=== PATIENT | male | born 1935 | race Caucasian/White ===

== ENCOUNTER 2020-11-03 11:45 | Outpatient (CLI) | payer MEDICARE, OTHER | END 2020-11-03 23:59 | disposition home or self-care (01) | LOC: MSC 11:45 | PROVIDERS: ATTEND Internal Medicine | DX: U07.1 COVID-19 (principal); M25.472 Effusion, left ankle; I10 Essential (primary) hypertension; N40.0 Benign prostatic hyperplasia without lower urinary tract symptoms; E78.5 Hyperlipidemia, unspecified; M19.90 Unspecified osteoarthritis, unspecified site; Z87.19 Personal history of other diseases of the digestive system; H91.90 Unspecified hearing loss, unspecified ear; D89.2 Hypergammaglobulinemia, unspecified; R73.02 Impaired glucose tolerance (oral); M72.0 Palmar fascial fibromatosis [Dupuytren]; M16.9 Osteoarthritis of hip, unspecified ==

== ENCOUNTER 2021-10-24 16:00 | Outpatient (CLI) | payer MEDICARE, OTHER | END 2021-10-24 23:59 | disposition home or self-care (01) | LOC: MSC 16:00 | PROVIDERS: ATTEND Internal Medicine | DX: I10 Essential (primary) hypertension (principal); R51.9 Headache, unspecified; Z86.16 Personal history of COVID-19; M25.473 Effusion, unspecified ankle; N40.0 Benign prostatic hyperplasia without lower urinary tract symptoms; E78.5 Hyperlipidemia, unspecified; M19.90 Unspecified osteoarthritis, unspecified site; Z87.19 Personal history of other diseases of the digestive system; H91.90 Unspecified hearing loss, unspecified ear; D89.2 Hypergammaglobulinemia, unspecified; E74.39 Other disorders of intestinal carbohydrate absorption; M72.0 Palmar fascial fibromatosis [Dupuytren]; M16.10 Unilateral primary osteoarthritis, unspecified hip ==

== ENCOUNTER 2021-10-25 09:21 | Outpatient (CLI) | payer MEDICARE, OTHER | END 2021-10-25 23:59 | disposition home or self-care (01) | LOC: MSC 09:21 | PROVIDERS: ATTEND Internal Medicine | DX: I10 Essential (primary) hypertension (principal); R51.9 Headache, unspecified; R05.9 Cough, unspecified; Z86.16 Personal history of COVID-19; M25.473 Effusion, unspecified ankle; N40.0 Benign prostatic hyperplasia without lower urinary tract symptoms; E78.5 Hyperlipidemia, unspecified; M19.90 Unspecified osteoarthritis, unspecified site; Z87.19 Personal history of other diseases of the digestive system; H91.90 Unspecified hearing loss, unspecified ear; D89.2 Hypergammaglobulinemia, unspecified; E74.39 Other disorders of intestinal carbohydrate absorption; M72.0 Palmar fascial fibromatosis [Dupuytren]; M16.9 Osteoarthritis of hip, unspecified ==

== ENCOUNTER 2021-11-01 11:45 | Outpatient (CLI) | payer MEDICARE, OTHER | END 2021-11-01 23:59 | disposition home or self-care (01) | LOC: MSC 11:45 | PROVIDERS: ATTEND Internal Medicine | DX: I10 Essential (primary) hypertension (principal); Z86.16 Personal history of COVID-19; M25.473 Effusion, unspecified ankle; N40.0 Benign prostatic hyperplasia without lower urinary tract symptoms; E78.5 Hyperlipidemia, unspecified; M19.90 Unspecified osteoarthritis, unspecified site; Z87.19 Personal history of other diseases of the digestive system; H91.90 Unspecified hearing loss, unspecified ear; D89.2 Hypergammaglobulinemia, unspecified; E74.39 Other disorders of intestinal carbohydrate absorption; M72.0 Palmar fascial fibromatosis [Dupuytren]; M16.10 Unilateral primary osteoarthritis, unspecified hip ==

== ENCOUNTER 2021-12-06 14:30 | Outpatient (CLI) | payer MEDICARE, OTHER | END 2021-12-06 23:59 | disposition home or self-care (01) | LOC: MSC 14:30 | PROVIDERS: ATTEND Internal Medicine | DX: R51.9 Headache, unspecified (principal); R42 Dizziness and giddiness; R06.00 Dyspnea, unspecified; I10 Essential (primary) hypertension; Z86.16 Personal history of COVID-19; M25.473 Effusion, unspecified ankle; N40.0 Benign prostatic hyperplasia without lower urinary tract symptoms; E78.5 Hyperlipidemia, unspecified; M19.90 Unspecified osteoarthritis, unspecified site; Z87.19 Personal history of other diseases of the digestive system; H91.90 Unspecified hearing loss, unspecified ear; D89.2 Hypergammaglobulinemia, unspecified; E74.39 Other disorders of intestinal carbohydrate absorption; M72.0 Palmar fascial fibromatosis [Dupuytren]; M16.10 Unilateral primary osteoarthritis, unspecified hip ==

== ENCOUNTER 2021-12-15 10:59 | Outpatient (CLI) | payer MEDICARE, OTHER | END 2021-12-15 23:59 | disposition home or self-care (01) | LOC: MSC 10:59 | PROVIDERS: ATTEND Internal Medicine | DX: R06.00 Dyspnea, unspecified (principal); I25.2 Old myocardial infarction; Z86.73 Personal history of transient ischemic attack (TIA), and cerebral infarction without residual deficits; I10 Essential (primary) hypertension; Z87.19 Personal history of other diseases of the digestive system; Z86.16 Personal history of COVID-19; M25.473 Effusion, unspecified ankle; N40.0 Benign prostatic hyperplasia without lower urinary tract symptoms; E78.5 Hyperlipidemia, unspecified; M19.90 Unspecified osteoarthritis, unspecified site; H91.90 Unspecified hearing loss, unspecified ear; D89.2 Hypergammaglobulinemia, unspecified; E74.39 Other disorders of intestinal carbohydrate absorption; M72.0 Palmar fascial fibromatosis [Dupuytren] ==

== ENCOUNTER 2022-01-18 15:30 | Outpatient (CLI) | payer MEDICARE, OTHER | END 2022-01-18 23:59 | disposition home or self-care (01) | LOC: MSC 15:30 | PROVIDERS: ATTEND Internal Medicine | DX: N41.9 Inflammatory disease of prostate, unspecified (principal); B96.5 Pseudomonas (aeruginosa) (mallei) (pseudomallei) as the cause of diseases classified elsewhere; N40.0 Benign prostatic hyperplasia without lower urinary tract symptoms; R06.00 Dyspnea, unspecified; I10 Essential (primary) hypertension; I25.2 Old myocardial infarction; Z86.73 Personal history of transient ischemic attack (TIA), and cerebral infarction without residual deficits; Z87.19 Personal history of other diseases of the digestive system; Z86.16 Personal history of COVID-19; M25.473 Effusion, unspecified ankle; E78.5 Hyperlipidemia, unspecified; M19.90 Unspecified osteoarthritis, unspecified site; H91.90 Unspecified hearing loss, unspecified ear; D89.2 Hypergammaglobulinemia, unspecified; E74.39 Other disorders of intestinal carbohydrate absorption; M72.0 Palmar fascial fibromatosis [Dupuytren]; M16.10 Unilateral primary osteoarthritis, unspecified hip; Z79.899 Other long term (current) drug therapy ==

== ENCOUNTER → 2022-03-14 | Outpatient (CLI) | payer MEDICARE, OTHER | END | disposition home or self-care (01) | LOC: MSC 12:31 | PROVIDERS: ATTEND Internal Medicine | DX: I48.0 Paroxysmal atrial fibrillation (principal); Z86.73 Personal history of transient ischemic attack (TIA), and cerebral infarction without residual deficits; N40.0 Benign prostatic hyperplasia without lower urinary tract symptoms; R06.00 Dyspnea, unspecified; I10 Essential (primary) hypertension; Z87.19 Personal history of other diseases of the digestive system; Z86.16 Personal history of COVID-19; M25.473 Effusion, unspecified ankle; E78.5 Hyperlipidemia, unspecified; M19.90 Unspecified osteoarthritis, unspecified site; H91.90 Unspecified hearing loss, unspecified ear; D89.2 Hypergammaglobulinemia, unspecified; E74.39 Other disorders of intestinal carbohydrate absorption; M72.0 Palmar fascial fibromatosis [Dupuytren]; M16.10 Unilateral primary osteoarthritis, unspecified hip ==

== ENCOUNTER 2022-03-23 11:00 | Outpatient (CLI) | payer MEDICARE, OTHER | END 2022-03-23 23:59 | disposition home or self-care (01) | LOC: MSC 11:00 | PROVIDERS: ATTEND Internal Medicine | DX: I48.0 Paroxysmal atrial fibrillation (principal); Z79.01 Long term (current) use of anticoagulants; R68.84 Jaw pain; Z86.73 Personal history of transient ischemic attack (TIA), and cerebral infarction without residual deficits; N40.0 Benign prostatic hyperplasia without lower urinary tract symptoms; R06.00 Dyspnea, unspecified; I10 Essential (primary) hypertension; Z87.19 Personal history of other diseases of the digestive system; Z86.16 Personal history of COVID-19; M25.473 Effusion, unspecified ankle; E78.5 Hyperlipidemia, unspecified; M19.90 Unspecified osteoarthritis, unspecified site; H91.90 Unspecified hearing loss, unspecified ear; D89.2 Hypergammaglobulinemia, unspecified; E74.39 Other disorders of intestinal carbohydrate absorption; M72.0 Palmar fascial fibromatosis [Dupuytren]; M16.10 Unilateral primary osteoarthritis, unspecified hip; Z79.899 Other long term (current) drug therapy ==

== ENCOUNTER 2022-04-12 14:30 | Outpatient (CLI) | payer MEDICARE, OTHER | END 2022-04-12 23:59 | disposition home or self-care (01) | LOC: MSC 14:30 | PROVIDERS: ATTEND Internal Medicine | DX: I48.0 Paroxysmal atrial fibrillation (principal); Z79.01 Long term (current) use of anticoagulants; R68.84 Jaw pain; N40.0 Benign prostatic hyperplasia without lower urinary tract symptoms; R06.00 Dyspnea, unspecified; I10 Essential (primary) hypertension; Z87.19 Personal history of other diseases of the digestive system; M25.473 Effusion, unspecified ankle; E78.5 Hyperlipidemia, unspecified; M19.90 Unspecified osteoarthritis, unspecified site; H91.90 Unspecified hearing loss, unspecified ear; D89.2 Hypergammaglobulinemia, unspecified; E74.39 Other disorders of intestinal carbohydrate absorption; M72.0 Palmar fascial fibromatosis [Dupuytren]; M16.10 Unilateral primary osteoarthritis, unspecified hip; Z86.16 Personal history of COVID-19; Z86.73 Personal history of transient ischemic attack (TIA), and cerebral infarction without residual deficits; Z79.899 Other long term (current) drug therapy ==

== ENCOUNTER → 2022-04-14 | Outpatient (CLI) | payer MEDICARE, OTHER | END | disposition home or self-care (01) | LOC: MSC 14:30 | PROVIDERS: ATTEND Internal Medicine | DX: Z51.89 Encounter for other specified aftercare (principal); I48.0 Paroxysmal atrial fibrillation; Z79.01 Long term (current) use of anticoagulants; R68.84 Jaw pain; N40.0 Benign prostatic hyperplasia without lower urinary tract symptoms; R06.00 Dyspnea, unspecified; I10 Essential (primary) hypertension; Z87.19 Personal history of other diseases of the digestive system; M25.473 Effusion, unspecified ankle; E78.5 Hyperlipidemia, unspecified; M19.90 Unspecified osteoarthritis, unspecified site; H91.90 Unspecified hearing loss, unspecified ear; D89.2 Hypergammaglobulinemia, unspecified; E74.39 Other disorders of intestinal carbohydrate absorption; M72.0 Palmar fascial fibromatosis [Dupuytren]; M16.10 Unilateral primary osteoarthritis, unspecified hip; Z86.16 Personal history of COVID-19; Z86.73 Personal history of transient ischemic attack (TIA), and cerebral infarction without residual deficits; Z79.899 Other long term (current) drug therapy ==

== ENCOUNTER 2022-04-19 13:30 | Outpatient (CLI) | payer MEDICARE, OTHER | END 2022-04-19 23:59 | disposition home or self-care (01) | LOC: MSC 13:30 | PROVIDERS: ATTEND Internal Medicine | DX: Z51.89 Encounter for other specified aftercare (principal); I48.0 Paroxysmal atrial fibrillation; Z79.01 Long term (current) use of anticoagulants; R68.84 Jaw pain; N40.0 Benign prostatic hyperplasia without lower urinary tract symptoms; R06.00 Dyspnea, unspecified; I10 Essential (primary) hypertension; Z87.19 Personal history of other diseases of the digestive system; M25.473 Effusion, unspecified ankle; E78.5 Hyperlipidemia, unspecified; M19.90 Unspecified osteoarthritis, unspecified site; H91.90 Unspecified hearing loss, unspecified ear; D89.2 Hypergammaglobulinemia, unspecified; E74.39 Other disorders of intestinal carbohydrate absorption; M72.0 Palmar fascial fibromatosis [Dupuytren]; M16.10 Unilateral primary osteoarthritis, unspecified hip; Z86.16 Personal history of COVID-19; Z86.73 Personal history of transient ischemic attack (TIA), and cerebral infarction without residual deficits ==

== ENCOUNTER → 2022-05-12 | Outpatient (CLI) | payer MEDICARE, OTHER | END | disposition home or self-care (01) | LOC: MSC 14:12 | PROVIDERS: ATTEND Internal Medicine | DX: R53.83 Other fatigue (principal); R06.00 Dyspnea, unspecified; I48.0 Paroxysmal atrial fibrillation; Z79.01 Long term (current) use of anticoagulants; R68.84 Jaw pain; N40.0 Benign prostatic hyperplasia without lower urinary tract symptoms; I10 Essential (primary) hypertension; M25.473 Effusion, unspecified ankle; E78.5 Hyperlipidemia, unspecified; M17.10 Unilateral primary osteoarthritis, unspecified knee; M16.10 Unilateral primary osteoarthritis, unspecified hip; D89.2 Hypergammaglobulinemia, unspecified; E74.39 Other disorders of intestinal carbohydrate absorption; M72.0 Palmar fascial fibromatosis [Dupuytren]; Z86.73 Personal history of transient ischemic attack (TIA), and cerebral infarction without residual deficits; Z86.16 Personal history of COVID-19; Z87.19 Personal history of other diseases of the digestive system ==

== ENCOUNTER 2022-05-30 08:47 | Outpatient (CLI) | payer MEDICARE, OTHER ==
[2022-05-30 09:15] LABS: BASOPHILS # (AUTO) 0.1 K/uL (0.0-0.2); BASOPHILS % (AUTO) 0.9 % (0.0-2.0); EOSINOPHILS % (AUTO) 1.4 % (0.0-6.0); HEMATOCRIT 41 % (39-51); HEMOGLOBIN 13.8 g/dL (13.5-17.5); LYMPHOCYTES # (AUTO) 2.3 K/uL (0.8-4.8); LYMPHOCYTES % (AUTO) 32.9 % (20.0-44.0); MEAN CORPUSCULAR HGB CONC 34 g/dl (31.0-36.0); MEAN CORPUSCULAR VOLUME 97 fL (80-96); MONOCYTES # (AUTO) 0.5 K/uL (0.1-1.30); MONOCYTES % (AUTO) 6.8 % (2.0-12.0); NEUTROPHILS # (AUTO) 4.1 K/uL (1.8-8.9); PLATELET COUNT (AUTO) 274 K/uL (150-450); RED BLOOD CELL COUNT(AUTO) 4.25 MIL/uL (4.5-6.0)
[2022-05-30 09:17] LABS: BILIRUBIN,URINE NEGATIVE (NEGATIVE); COLOR,URINE YELLOW (YELLOW); LEUKOCYTE ESTERASE ,URINE NEGATIVE (NEGATIVE); NITRITE, URINE NEGATIVE (NEGATIVE); PROTEIN,URINE NEGATIVE (NEGATIVE); UGLUCOSE NEGATIVE (NEGATIVE); UROBILINOGEN,URINE 0.2 EU/dL (0.2)
[2022-05-30 09:40] LABS: ALBUMIN 3.5 g/dL (3.4-5.0); BILIRUBIN,TOTAL 0.9 mg/dL (0.2-1.0); CREATININE 0.9 mg/dL (0.6-1.3); POTASSIUM 3.9 mmol/L (3.5-5.1); TOTAL PROTEIN, SERUM 7.5 g/dL (6.4-8.2)
== END 2022-05-30 23:59 | disposition home or self-care (01) ==
LOC: LAB 08:47
PROVIDERS: ATTEND Internal Medicine
DX: Z01.811 Encounter for preprocedural respiratory examination (principal); Z90.49 Acquired absence of other specified parts of digestive tract
CPT/HCPCS: 36415; 71046; 80053-TC; 85025-TC; 85730-TC

== ENCOUNTER 2022-06-08 10:07 | Outpatient (CLI) | payer MEDICARE, OTHER | END 2022-06-08 23:59 | disposition home or self-care (01) | LOC: MSC 10:07 | PROVIDERS: ATTEND Internal Medicine | DX: Z01.818 Encounter for other preprocedural examination (principal); I49.5 Sick sinus syndrome; R06.00 Dyspnea, unspecified; I48.0 Paroxysmal atrial fibrillation; Z79.01 Long term (current) use of anticoagulants; R68.84 Jaw pain; N40.0 Benign prostatic hyperplasia without lower urinary tract symptoms; I10 Essential (primary) hypertension; M25.473 Effusion, unspecified ankle; E78.5 Hyperlipidemia, unspecified; M17.10 Unilateral primary osteoarthritis, unspecified knee; M16.10 Unilateral primary osteoarthritis, unspecified hip; H91.90 Unspecified hearing loss, unspecified ear; D89.2 Hypergammaglobulinemia, unspecified; E74.39 Other disorders of intestinal carbohydrate absorption; M72.0 Palmar fascial fibromatosis [Dupuytren]; Z86.73 Personal history of transient ischemic attack (TIA), and cerebral infarction without residual deficits; Z86.16 Personal history of COVID-19; Z87.19 Personal history of other diseases of the digestive system ==

== ENCOUNTER 2022-07-18 10:55 | Outpatient (CLI) | payer MEDICARE, OTHER | END 2022-07-18 23:59 | disposition home or self-care (01) | LOC: MSC 10:55 | PROVIDERS: ATTEND Internal Medicine | DX: R53.83 Other fatigue (principal); I10 Essential (primary) hypertension; Z95.0 Presence of cardiac pacemaker; I48.0 Paroxysmal atrial fibrillation; Z79.01 Long term (current) use of anticoagulants; Z86.73 Personal history of transient ischemic attack (TIA), and cerebral infarction without residual deficits; R06.00 Dyspnea, unspecified; R68.84 Jaw pain; N40.0 Benign prostatic hyperplasia without lower urinary tract symptoms; M25.473 Effusion, unspecified ankle; E78.5 Hyperlipidemia, unspecified; Z96.659 Presence of unspecified artificial knee joint; M16.10 Unilateral primary osteoarthritis, unspecified hip; H91.90 Unspecified hearing loss, unspecified ear; D89.2 Hypergammaglobulinemia, unspecified; E74.39 Other disorders of intestinal carbohydrate absorption; M72.0 Palmar fascial fibromatosis [Dupuytren]; Z86.16 Personal history of COVID-19; Z87.19 Personal history of other diseases of the digestive system ==

== ENCOUNTER → 2022-10-04 | Outpatient (CLI) | payer MEDICARE, OTHER | END | disposition home or self-care (01) | LOC: MSC 14:00 | PROVIDERS: ATTEND Internal Medicine | DX: R42 Dizziness and giddiness (principal); R53.83 Other fatigue; I10 Essential (primary) hypertension; Z95.0 Presence of cardiac pacemaker; R06.00 Dyspnea, unspecified; I48.0 Paroxysmal atrial fibrillation; Z79.01 Long term (current) use of anticoagulants; Z86.73 Personal history of transient ischemic attack (TIA), and cerebral infarction without residual deficits; R68.84 Jaw pain; N40.0 Benign prostatic hyperplasia without lower urinary tract symptoms; M25.473 Effusion, unspecified ankle; E78.5 Hyperlipidemia, unspecified; M19.90 Unspecified osteoarthritis, unspecified site; M16.10 Unilateral primary osteoarthritis, unspecified hip; Z96.659 Presence of unspecified artificial knee joint; H91.90 Unspecified hearing loss, unspecified ear; D89.2 Hypergammaglobulinemia, unspecified; E74.39 Other disorders of intestinal carbohydrate absorption; M72.0 Palmar fascial fibromatosis [Dupuytren]; Z86.16 Personal history of COVID-19; Z87.19 Personal history of other diseases of the digestive system ==

== ENCOUNTER 2022-10-05 14:00 | Outpatient (CLI) | payer MEDICARE, OTHER | END 2022-10-05 23:59 | disposition home or self-care (01) | LOC: MSC 14:00 | PROVIDERS: ATTEND Internal Medicine | DX: R42 Dizziness and giddiness (principal); R53.83 Other fatigue; I10 Essential (primary) hypertension; Z95.0 Presence of cardiac pacemaker; R06.00 Dyspnea, unspecified; I48.0 Paroxysmal atrial fibrillation; Z79.01 Long term (current) use of anticoagulants; R68.84 Jaw pain; N40.0 Benign prostatic hyperplasia without lower urinary tract symptoms; M25.473 Effusion, unspecified ankle; E78.5 Hyperlipidemia, unspecified; M16.10 Unilateral primary osteoarthritis, unspecified hip; Z96.659 Presence of unspecified artificial knee joint; H91.90 Unspecified hearing loss, unspecified ear; D89.2 Hypergammaglobulinemia, unspecified; E74.39 Other disorders of intestinal carbohydrate absorption; M72.0 Palmar fascial fibromatosis [Dupuytren]; Z86.16 Personal history of COVID-19; Z86.73 Personal history of transient ischemic attack (TIA), and cerebral infarction without residual deficits; Z87.19 Personal history of other diseases of the digestive system ==

== ENCOUNTER 2022-11-30 10:42 | Outpatient (CLI) | payer MEDICARE, OTHER | END 2022-11-30 23:59 | disposition home or self-care (01) | LOC: MSC 10:42 | PROVIDERS: ATTEND Internal Medicine | DX: R05.9 Cough, unspecified (principal); K59.00 Constipation, unspecified; I48.0 Paroxysmal atrial fibrillation; Z79.01 Long term (current) use of anticoagulants; R06.00 Dyspnea, unspecified; R53.83 Other fatigue; I10 Essential (primary) hypertension; Z95.0 Presence of cardiac pacemaker; R68.84 Jaw pain; N40.0 Benign prostatic hyperplasia without lower urinary tract symptoms; M25.473 Effusion, unspecified ankle; E78.5 Hyperlipidemia, unspecified; M16.10 Unilateral primary osteoarthritis, unspecified hip; M17.9 Osteoarthritis of knee, unspecified; Z96.659 Presence of unspecified artificial knee joint; H91.90 Unspecified hearing loss, unspecified ear; D89.2 Hypergammaglobulinemia, unspecified; E74.39 Other disorders of intestinal carbohydrate absorption; M72.0 Palmar fascial fibromatosis [Dupuytren]; Z86.16 Personal history of COVID-19; Z86.73 Personal history of transient ischemic attack (TIA), and cerebral infarction without residual deficits; Z87.19 Personal history of other diseases of the digestive system | CPT/HCPCS: A4217 ==

== ENCOUNTER 2022-12-28 15:30 | Outpatient (CLI) | payer MEDICARE, OTHER | END 2022-12-28 23:59 | disposition home or self-care (01) | LOC: MSC 15:30 | PROVIDERS: ATTEND Internal Medicine | DX: R05.9 Cough, unspecified (principal); R06.7 Sneezing; R09.81 Nasal congestion; Z86.16 Personal history of COVID-19; K59.00 Constipation, unspecified; I48.0 Paroxysmal atrial fibrillation; Z79.01 Long term (current) use of anticoagulants; Z95.0 Presence of cardiac pacemaker; R06.00 Dyspnea, unspecified; R53.83 Other fatigue; I10 Essential (primary) hypertension; R68.84 Jaw pain; N40.0 Benign prostatic hyperplasia without lower urinary tract symptoms; M25.473 Effusion, unspecified ankle; E78.5 Hyperlipidemia, unspecified; M16.10 Unilateral primary osteoarthritis, unspecified hip; M17.9 Osteoarthritis of knee, unspecified; Z96.659 Presence of unspecified artificial knee joint; H91.90 Unspecified hearing loss, unspecified ear; D89.2 Hypergammaglobulinemia, unspecified; E74.39 Other disorders of intestinal carbohydrate absorption; M72.0 Palmar fascial fibromatosis [Dupuytren]; Z86.73 Personal history of transient ischemic attack (TIA), and cerebral infarction without residual deficits; Z87.19 Personal history of other diseases of the digestive system ==

== ENCOUNTER → 2023-01-01 | Outpatient (CLI) | payer MEDICARE, OTHER | END | disposition home or self-care (01) | LOC: MSC 15:30 | PROVIDERS: ATTEND Internal Medicine | DX: J06.9 Acute upper respiratory infection, unspecified (principal); R07.9 Chest pain, unspecified; K59.00 Constipation, unspecified; I48.0 Paroxysmal atrial fibrillation; Z79.01 Long term (current) use of anticoagulants; Z95.0 Presence of cardiac pacemaker; R06.00 Dyspnea, unspecified; R53.83 Other fatigue; I10 Essential (primary) hypertension; R68.84 Jaw pain; N40.0 Benign prostatic hyperplasia without lower urinary tract symptoms; M25.473 Effusion, unspecified ankle; E78.5 Hyperlipidemia, unspecified; M17.9 Osteoarthritis of knee, unspecified; Z96.659 Presence of unspecified artificial knee joint; M16.10 Unilateral primary osteoarthritis, unspecified hip; H91.90 Unspecified hearing loss, unspecified ear; D89.2 Hypergammaglobulinemia, unspecified; E74.39 Other disorders of intestinal carbohydrate absorption; M72.0 Palmar fascial fibromatosis [Dupuytren]; Z86.16 Personal history of COVID-19; Z86.73 Personal history of transient ischemic attack (TIA), and cerebral infarction without residual deficits; Z87.19 Personal history of other diseases of the digestive system ==

== ENCOUNTER → 2023-01-04 | Outpatient (CLI) | payer MEDICARE, OTHER | END | disposition home or self-care (01) | LOC: MSC 15:00 | PROVIDERS: ATTEND Internal Medicine | DX: J06.9 Acute upper respiratory infection, unspecified (principal); K59.00 Constipation, unspecified; I48.0 Paroxysmal atrial fibrillation; Z79.01 Long term (current) use of anticoagulants; Z95.0 Presence of cardiac pacemaker; R06.00 Dyspnea, unspecified; R53.83 Other fatigue; I10 Essential (primary) hypertension; R68.84 Jaw pain; N40.0 Benign prostatic hyperplasia without lower urinary tract symptoms; M25.473 Effusion, unspecified ankle; E78.5 Hyperlipidemia, unspecified; M17.9 Osteoarthritis of knee, unspecified; Z96.659 Presence of unspecified artificial knee joint; M16.10 Unilateral primary osteoarthritis, unspecified hip; H91.90 Unspecified hearing loss, unspecified ear; D89.2 Hypergammaglobulinemia, unspecified; E74.39 Other disorders of intestinal carbohydrate absorption; M72.0 Palmar fascial fibromatosis [Dupuytren]; Z86.16 Personal history of COVID-19; Z86.73 Personal history of transient ischemic attack (TIA), and cerebral infarction without residual deficits; Z87.19 Personal history of other diseases of the digestive system ==

== ENCOUNTER → 2023-05-17 | Outpatient (CLI) | payer MEDICARE, OTHER | END | disposition home or self-care (01) | LOC: MSC 14:30 | PROVIDERS: ATTEND Internal Medicine | DX: R04.0 Epistaxis (principal); J40 Bronchitis, not specified as acute or chronic; R07.9 Chest pain, unspecified; I48.0 Paroxysmal atrial fibrillation; Z79.01 Long term (current) use of anticoagulants; Z95.0 Presence of cardiac pacemaker; R06.00 Dyspnea, unspecified; I10 Essential (primary) hypertension; R68.84 Jaw pain; M25.473 Effusion, unspecified ankle; E78.5 Hyperlipidemia, unspecified; M17.9 Osteoarthritis of knee, unspecified; Z96.659 Presence of unspecified artificial knee joint; M16.10 Unilateral primary osteoarthritis, unspecified hip; D89.2 Hypergammaglobulinemia, unspecified; E74.39 Other disorders of intestinal carbohydrate absorption; Z86.16 Personal history of COVID-19; Z86.73 Personal history of transient ischemic attack (TIA), and cerebral infarction without residual deficits ==